=== PATIENT | male | born 1970 | race Caucasian/White ===

== ENCOUNTER 2018-05-05 23:48 | Emergency (ER) | payer SELFPAY ==
[2018-05-06] MEDS: levETIRAcetam 1,000 MG in IV DEXTROSE 5% 100ML 100 ML IV (01:13)
[2018-05-06] MEDS: IV NORMAL SALINE 1000ML BAG 1,000 ML IV (01:14)
== END 2018-05-06 03:37 | disposition home or self-care (01) ==
LOC: ER 23:48
DX: S00.83XA Contusion of other part of head, initial encounter (principal); G40.909 Epilepsy, unspecified, not intractable, without status epilepticus; W19.XXXA Unspecified fall, initial encounter; Y93.89 Activity, other specified; Y92.89 Other specified places as the place of occurrence of the external cause; Y99.8 Other external cause status
CPT/HCPCS: 70450; 70486; 72125; 96365; 99284-25; J1953; J7030

== ENCOUNTER 2018-12-15 03:06 | Emergency (ER) | payer SELFPAY ==
[~2018-12-15] VITALS: Ht 165.1 cm; Wt 63.5 kg
[~2018-12-15 03:06] MED LIST: LEVE100020 PO
[2018-12-15 03:07] VITALS: BP 157/95
[2018-12-15] MEDS ORDERED: LEVE100020 PO (03:26)
--- NOTE | 2018-12-15 03:37 | PHYS DOC ---
Past Medical History Past Medical History: Seizure Past Surgical History: Other Additional Past Surgical Histo: RIGHT SHOULDER DRAINED FLUID Alcohol Use: None Drug Use: Marijuana Adult General Chief Complaint Chief Complaint: MEDICATION REFILL HPI HPI Patient is a 48 year old male who presents for medication refill. Patient has a known history of seizure disorder. He takes Keppra 1000 mg twice daily which she states adequately controlled his seizures. He has been out of his medications for 3 days. He presents to the ER primarily requesting a medication refill. The patient has not had any seizure activity since running out of his medications. No fever or chills. No other illness recently. No other complaints. Review of Systems Review of Systems Constitutional: Denies fever or chills Eyes: Denies change in visual acuity HENT: Denies nasal congestion Respiratory: Denies cough or shortness of breath Cardiovascular: No additional information not addressed in HPI GI: Denies abdominal pain, nausea Musculoskeletal: Denies back pain Integument: Denies rash or skin lesions Neurologic: Denies headache, focal weakness Endocrine: Denies polyuria or polydipsia All other systems were reviewed and found to be within normal limits, except as documented in this note. Current Medications Current Medications Current Medications Medications (Trade) Dose Ordered Sig/Jesus Start Time Stop Time Status Last Admin Dose Admin Levetiracetam (Keppra) 1,000 mg 1X ONCE 12/15/18 03:45 12/15/18 03:46 Allergies Allergies Allergies Coded Allergies Type Severity Reaction Last Updated Verified No Known Drug Allergies 05/06/18 No Physical Exam Physical Exam Constitutional: Well developed, well nourished, no acute distress, non-toxic appearance HENT: Normocephalic, atraumatic, bilateral external ears normal, oropharynx moist Eyes: PERRLA, EOMI Neck: Normal range of motion Cardiovascular:Heart rate regular rhythm, no murmur Lungs & Thorax: Bilateral breath sounds clear to auscultation Skin: Warm, dry, no erythema, no rash Extremities: Normal exam Neurologic: Alert and oriented X 3, normal motor function, normal sensory function, no focal deficits noted Psychologic: Affect normal Current Patient Data Vital Signs Vital Signs Date Time Temp Pulse Resp B/P (MAP) Pulse Ox O2 Delivery O2 Flow Rate FiO2 12/15/18 03:07 98.5 61 16 157/95 (115) 100 Room Air 98.5 EKG EKG [] Radiology/Procedures Radiology/Procedures [] Course & Med Decision Making Course & Med Decision Making Pertinent Labs and Imaging studies reviewed. (See chart for details) Patient is given a 2 month supply of keppra. Advised to f/u with his primary care physician or neurologist in the near future for additional refills. He was given keppra 1,000 mg PO in the ER. Dragon Disclaimer Dragon Disclaimer This electronic medical record was generated, in whole or in part, using a voice recognition dictation system. Departure Departure Impression: Primary Impression: Medication refill Additional Impression: Seizure disorder Disposition: HOME, SELF-CARE Condition: GOOD Patient Instructions: Seizure Disorder, Child, Generalized Tonic-Clonic Scripts Levetiracetam (KEPPRA) 1,000 Mg Tablet 1 TAB PO BID, #60 TAB 1 Refill Prov: BRANDON OSBORNE DO 12/15/18 Problem Qualifiers BRANDON OSBORNE DO Dec 15, 2018 03:37
[2018-12-15] MEDS ORDERED: levETIRAcetam 500 MG TABLET PO ONE (03:45)
== END 2018-12-15 03:35 | disposition home or self-care (01) ==
LOC: ER 03:06
DX: G40.909 Epilepsy, unspecified, not intractable, without status epilepticus (principal)
CPT/HCPCS: 99283

== ENCOUNTER 2020-01-02 18:44 | Emergency (ER) | payer SELFPAY ==
[~2020-01-02] VITALS: Ht 165.1 cm; Wt 59.0 kg
[2020-01-02 19:27] VITALS: BP 155/106
--- NOTE | 2020-01-02 19:36 | PHYS DOC ---
Past Medical History Past Medical History: Seizure Past Surgical History: Other Additional Past Surgical Histo: RIGHT SHOULDER DRAINED FLUID Smoking Status: Former Smoker Alcohol Use: None Drug Use: Marijuana Adult General Chief Complaint Chief Complaint: MEDICATION REFILL HPI HPI Patient is a 49 year old male who presents with out of Keppra for 3-4 weeks. He states 2 weeks ago he had a seizure but did not go to the hospital. He states when that happened he didn't hit his head. He states that he has a headache today that is in his forehead area. Rates his pain a 9 out of 10. He states he [id number] twice a day of Keppra. Patient states before he has a seizure he kno ws that he will have a seizure because he has flashes of lights in his eyes and photophobia. This is not the worse headache of his life. Review of Systems Review of Systems Neurologic: headache, denies focal weakness or sensory changes [] All other systems were reviewed and found to be within normal limits, except as documented in this note. Current Medications Current Medications Current Medications Medications (Trade) Dose Ordered Sig/Jesus Start Time Stop Time Status Last Admin Dose Admin Ibuprofen (Motrin) 600 mg 1X ONCE 01/02/20 19:30 01/02/20 19:31 DC 01/02/20 19:52 600 MG Allergies Allergies Allergies Coded Allergies Type Severity Reaction Last Updated Verified No Known Drug Allergies 05/06/18 No Physical Exam Physical Exam Constitutional: Well developed, well nourished, no acute distress, non-toxic appearance. [] HENT: Normocephalic, atraumatic, bilateral external ears normal, oropharynx moist, no oral exudates, nose normal. [] Eyes: PERRLA, EOMI, conjunctiva normal, no discharge. [] Neck: Normal range of motion, no tenderness, supple, no stridor. [] Cardiovascular:Heart rate regular rhythm, no murmur [] Lungs & Thorax: Bilateral breath sounds clear to auscultation [] Abdomen: Bowel sounds normal, soft, no tenderness, no masses, no pulsatile masses. [] Skin: Warm, dry, no erythema, no rash. [] Back: No tenderness, no CVA tenderness. [] Extremities: No tenderness, no cyanosis, no clubbing, ROM intact, no edema. [] Neurologic: Alert and oriented X 3, normal motor function, normal sensory function, no focal deficits noted. [] Psychologic: Affect normal, judgement normal, mood normal. Normal physical exam [] Current Patient Data Vital Signs Vital Signs Date Time Temp Pulse Resp B/P (MAP) Pulse Ox O2 Delivery O2 Flow Rate FiO2 01/02/20 19:27 98.1 70 16 155/106 (122) 100 Room Air 98.1 Lab Values Laboratory Tests Test 01/02/20 19:39 White Blood Count 5.0 x10^3/uL (4.0-11.0) Red Blood Count 4.79 x10^6/uL (4.30-5.70) Hemoglobin 14.2 g/dL (13.0-17.5) Hematocrit 42.5 % (39.0-53.0) Mean Corpuscular Volume 89 fL (79-100) Mean Corpuscular Hemoglobin 30 pg (25-35) Mean Corpuscular Hemoglobin Concent 33 g/dL (31-37) Red Cell Distribution Width 13.3 % (11.5-14.5) Platelet Count 257 x10^3/uL (140-400) Neutrophils (%) (Auto) 47 % (31-73) Lymphocytes (%) (Auto) 34 % (24-48) Monocytes (%) (Auto) 9 % (0-9) Eosinophils (%) (Auto) 10 % (0-3) H Basophils (%) (Auto) 1 % (0-3) Neutrophils # (Auto) 2.3 x10^3/uL (1.8-7.7) Lymphocytes # (Auto) 1.7 x10^3/uL (1.0-4.8) Monocytes # (Auto) 0.4 x10^3/uL (0.0-1.1) Eosinophils # (Auto) 0.5 x10^3/uL (0.0-0.7) Basophils # (Auto) 0.1 x10^3/uL (0.0-0.2) Sodium Level 140 mmol/L (136-145) Potassium Level 3.7 mmol/L (3.5-5.1) Chloride Level 103 mmol/L (98-107) Carbon Dioxide Level 29 mmol/L (21-32) Anion Gap 8 (6-14) Blood Urea Nitrogen 19 mg/dL (8-26) Creatinine 1.2 mg/dL (0.7-1.3) Estimated GFR (Cockcroft-Gault) 64.4 BUN/Creatinine Ratio 16 (6-20) Glucose Level 84 mg/dL (70-99) Calcium Level 9.0 mg/dL (8.5-10.1) Total Bilirubin 0.2 mg/dL (0.2-1.0) Aspartate Amino Transferase (AST) 90 U/L (15-37) H Alanine Aminotransferase (ALT) 150 U/L (16-63) H Alkaline Phosphatase 108 U/L (46-116) Total Protein 7.1 g/dL (6.4-8.2) Albumin 3.6 g/dL (3.4-5.0) Albumin/Globulin Ratio 1.0 (1.0-1.7) Laboratory Tests 01/02/20 19:39 Laboratory Tests 01/02/20 19:39 EKG EKG [] Radiology/Procedures Radiology/Procedures [] Impressions: [facility] [address] [place], [place] [id number] IMAGING REPORT Signed PATIENT: DAPHNE VALDEZ ACCOUNT: [id number] : 1970 LOCATION: ER AGE: 49 SEX: M EXAM STATUS: REG ER ORD. PHYSICIAN: DILLON GONZALEZ APRN REASON: headache, HX Seizures PROCEDURE: CT HEAD WO CONTRAST Exam: CT head INDICATION: Headache TECHNIQUE: Sequential axial images through the head were obtained without the administration of IV contrast. Comparisons: None FINDINGS: No focal parenchymal lesion or hemorrhage is identified. There is no midline shift or sulcal effacement. No acute vascular territory infarction is identified. Ghotra-white distinction is preserved. The ventricular system is within normal limits without compression hydrocephalus. The basal cisterns are well maintained. The visualized portions of the paranasal sinuses and mastoid air cells are well-pneumatized. No acute fractures. IMPRESSION: No acute intracranial abnormality. Exposure: One or more of the following in the visualized dose reduction techniques were utilized for this examination: 1. Automated exposure control 2. Adjustment of the MA and/or KV according to patient size Use of iterative of reconstructive technique Electronically signed by: Ina Coppola MD (01/02/2020 7:55 PM) [id number] DICTATED and SIGNED BY: INA COPPOLA MD DATE: 01/02/201954 Course & Med Decision Making Course & Med Decision Making Pertinent Labs and Imaging studies reviewed. (See chart for details) Alert and oriented. Speaks in full clear sentences. Ambulatory steady gait. Skin pink warm and dry. Lungs are clear to auscultation all lobes. Vital signs wi thin normal limits. Patient denies fever, dizziness, visual changes, numbness or tingling, focal weaknesses, abdominal pain, nausea, vomiting, diarrhea, chest pain, shortness of breath. I have gone over this patients care plan with Dr Triana. He states to give the patient a prescription. He states he does not need anything by mouth at this time. [] Dragon Disclaimer Dragon Disclaimer This electronic medical record was generated, in whole or in part, using a voice recognition dictation system. Departure Departure Impression: Primary Impression: Medication refill Disposition: HOME, SELF-CARE Condition: STABLE Referrals: NO PCP (PCP) Patient Instructions: Medication Refill, Emergency Department Additional Instructions: Follow-up with her primary care physician. Take your medication as prescribed. Scripts Levetiracetam (KEPPRA) 1,000 Mg Tablet 1 TAB PO BID for 30 Days, #60 TAB 0 Refills Prov: DILLON GONZALEZ APRN 01/02/20 DILLON GONZALEZ APRN Jan 02, 2020 19:36
[2020-01-02 19:46] LABS: BASO # 0.1 x10^3/uL (0.0-0.2); BASO % 1 % (0-3); EOS # 0.5 x10^3/uL (0.0-0.7); EOS % 10 % (0-3); HEMATOCRIT 42.5 % (39.0-53.0); HEMOGLOBIN 14.2 g/dL (13.0-17.5); LYMPH # 1.7 x10^3/uL (1.0-4.8); LYMPH % 34 % (24-48); MEAN CORPUSCULAR HEMOGLOBIN 30 pg (25-35); MEAN CORPUSCULAR HGB CONC 33 g/dL (31-37); MEAN CORPUSCULAR VOLUME 89 fL (79-100); MONO # 0.4 x10^3/uL (0.0-1.1); MONO % 9 % (0-9); NEUT # 2.3 x10^3/uL (1.8-7.7); NEUT % 47 % (31-73); PLATELET COUNT 257 x10^3/uL (140-400); RED BLOOD COUNT 4.79 x10^6/uL (4.30-5.70); RED CELL DISTRIBUTION WIDTH 13.3 % (11.5-14.5)
[2020-01-02] MEDS: IBUPROFEN 200 MG TABLET. PO ONE (19:52)
--- NOTE | 2020-01-02 19:58 | RAD ---
Exam: CT head INDICATION: Headache TECHNIQUE: Sequential axial images through the head were obtained without the administration of IV contrast. Comparisons: None FINDINGS: No focal parenchymal lesion or hemorrhage is identified. There is no midline shift or sulcal effacement. No acute vascular territory infarction is identified. Ghotra-white distinction is preserved. The ventricular system is within normal limits without compression hydrocephalus. The basal cisterns are well maintained. The visualized portions of the paranasal sinuses and mastoid air cells are well-pneumatized. No acute fractures. IMPRESSION: No acute intracranial abnormality. Exposure: One or more of the following in the visualized dose reduction techniques were utilized for this examination: 1. Automated exposure control 2. Adjustment of the MA and/or KV according to patient size Use of iterative of reconstructive technique Electronically signed by: Ina Fontaine MD (01/02/2020 7:55 PM) [id number]
[2020-01-02 20:16] LABS: ALBUMIN 3.6 g/dL (3.4-5.0); CREATININE 1.2 mg/dL (0.7-1.3); GFR 64.4; POTASSIUM 3.7 mmol/L (3.5-5.1); TOTAL BILIRUBIN 0.2 mg/dL (0.2-1.0); TOTAL PROTEIN 7.1 g/dL (6.4-8.2)
[2020-01-02] MEDS ORDERED: LEVE100020 PO (20:59)
== END 2020-01-02 21:15 | disposition home or self-care (01) ==
LOC: ER 18:44
DX: R56.9 Unspecified convulsions (principal); R51 Headache; F12.90 Cannabis use, unspecified, uncomplicated; F17.200 Nicotine dependence, unspecified, uncomplicated; Z98.890 Other specified postprocedural states
CPT/HCPCS: 36415; 70450; 80053; 80177; 85025; 99284